=== PATIENT | male | born 1930 | race Caucasian/White ===

== ENCOUNTER 2017-08-23 17:06 | Inpatient (IN) | payer MEDICARE ==
[~2017-08-23] VITALS: Ht 172.7 cm; Wt 56.7 kg
--- NOTE | ~2017-08-23 | HP ---
PATIENT: JOSSIE PAINTING MEDICAL RECORD: [id number] ACCOUNT: [id number] LOCATION:[id number] : [birth year] ADMISSION DATE: 08/24/17 HISTORY AND PHYSICAL EXAMINATION DATE OF ADMISSION: 08/23/2017. CHIEF COMPLAINT: Shortness of breath. HISTORY OF PRESENT ILLNESS: The patient is an 87-year-old white male, who resides in [place]. Over the past couple of days, he has increasing shortness of breath, began running fever, presented to the Emergency Room where he was found to have a right lower lobe pneumonia, it was felt the patient needed admission. The patient states he does not wish to be transferred to [facility], wished to have his care locally. PAST MEDICAL HISTORY: Significant that he has had a history of angina. He has had hypertension. He has had chronic low back pain, COPD, depression. FAMILY HISTORY: Mother and father both in their 70s. SOCIAL HISTORY: The patient was born in [facility], grew up in [place]. He has worked in [employer] business in the past. He is and a father of 2. HABITS: He is a half pack per day smoker, he has been so since age 13 years of age. Alcohol use none. ALLERGIES: DEMEROL as well as CODEINE. MEDICATIONS: Include Atrovent inhaler, albuterol inhaler, sertraline 100 mg one-half tab p.o. every day, meclizine 12.5 mg q.8 hours p.r.n. dizziness, bisoprolol 5 mg once a day, hydrocodone 7.5/325 one p.o. q.4 hours p.r.n. pain. REVIEW OF SYSTEMS: CONSTITUTIONAL: He denies any headaches, seizure, or syncope. He denies change in visual or auditory acuity. PULMONARY: He does report having cough, congestion, yellow sputum production. CARDIOVASCULAR: He has had no chest pain, palpitation, PND, orthopnea. GASTROINTESTINAL: No chronic nausea, vomiting, melena, or hematochezia. GENITOURINARY: No urgency, frequency, or dysuria. PHYSICAL EXAMINATION: VITAL SIGNS: Today, his temperature was 103.8 in the Emergency Room, his pulse is 79, respirations 24, blood pressure 135/69, and his O2 sat was 97% on room air. HEENT: Head is normocephalic. No lesions. Ears: TMs clear. Eyes: Pupils equal, round, and reactive to light. His extraocular movements are intact. His nasal cavity, oral cavity, oropharynx clear. NECK: Supple. There is no adenopathy. HEART: He has a regular rate and rhythm without any murmurs, gallops, or rubs. LUNGS: He has decreased breath sounds in the right lower lung. ABDOMEN: Soft, bowel sounds positive. LOWER EXTREMITIES: He had no edema. LABORATORY DATA AND DIAGNOSTIC STUDIES: The patient had a chest x-ray showing a HISTORY AND PHYSICAL [id number] [id number] right lower lobe atelectasis or pneumonia, emphysematous mild to moderate changes seen bilaterally. His white count is 19.2, hemoglobin 11.9, hematocrit 36.7, and platelets were 218. Sodium 136, potassium 4.1, chloride 100, CO2 was 24.4. His BUN is 22, creatinine 1.4, and glucose 121. Urinalysis; the patient had 10-25 rbc's per high power field and he had few bacteria. ASSESSMENT: Right lower lobe pneumonia, chronic obstructive pulmonary disease, depression, hypertension, and arteriosclerotic heart disease. PLAN: The patient is admitted. Sputum cultures will be obtained. He will also be placed on vancomycin, also given meropenem, Tylenol for fever, albuterol and Atrovent updrafts, O2 supplementation. Sputum cultures, blood cultures will be obtained. Pharmacy will be consulted for vancomycin peak and trough. Continue to evaluate. TRANSINT:[id number] Voice Confirmation ID: [id number] DOCUMENT ID: [id number] JOSSIE BHATT MD at 0717 CC: [id number] DICTATION DATE: 08/24/17 0859 GAS LOAD DISPATCHER: 08/24/17 1103 ADM IN [facility] [address] [place] [address]
[2017-08-23 18:43] LABS: BASOPHILS 0.1 % (0-2); EOSINOPHILS 0 % (0-7); HEMATOCRIT 36.7 % (42.0-54.0); HEMOGLOBIN 11.9 g/dL (13.5-17.5); IMMATURE GRANULOCYTES 0.4 % (0-5); LYMPHOCYTES 2.8 % (15-50); MCH 29.5 pg (26.0-34.0); MCHC 32.4 g/dL (31.0-37.0); MCV 91.1 fL (80.0-100.0); MEAN PLATELET VOLUME 9.8 fL (7.4-10.4); MONOCYTES 6.8 % (2-11); NEUTROPHILS 89.9 % (40-80); PLATELET COUNT 218 10x3/uL (130-400); RBC 4.03 10x6/uL (4.20-6.10); RDW 13.3 % (11.5-14.5); WBC 19.2 10x3/uL (4.8-10.8)
[2017-08-23 18:49] LABS: APPEARANCE CLEAR (CLEAR); BACTERIA FEW /hpf (NONE SEEN); BILIRUBIN NEGATIVE (NEGATIVE); COLOR YELLOW (YELLOW); EPITHELIAL CELLS 0-5 /hpf (0-5); GLUCOSE NEGATIVE (NEGATIVE); KETONE SMALL mg/dL (NEGATIVE); MUCUS <1+ /lpf (NONE SEEN); NITRITE NEGATIVE (NEGATIVE); PROTEIN NEGATIVE (NEGATIVE); SPECIFIC GRAVITY 1.015 (1.005-1.020); UROBILINOGEN NORMAL (NORMAL); WHITE CELLS - URINE 0-5 /hpf (0-5)
[2017-08-23 18:53] LABS: INR 1.17 (0.85-1.17); PROTIME 14.5 SECONDS (11.6-15.0)
[2017-08-23 18:58] LABS: ALBUMIN 3.3 g/dL (3.4-5.0); ALKALINE PHOSPHATASE 63 U/L (46-116); ALT (SGPT) 12 U/L (10-68); BILIRUBIN - TOTAL 0.54 mg/dL (0.2-1.3); CALC OSMOLALITY 275 mosm/kg (275-300); CALCIUM 9.2 mg/dL (8.5-10.1); CARBON DIOXIDE 24.4 mmol/L (21.0-32.0); CHLORIDE - SERUM 100 mmol/L (98-107); CREATININE - SERUM 1.4 mg/dL (0.6-1.3); GLUCOSE 121 mg/dL (74-106); POTASSIUM - SERUM 4.1 mmol/L (3.5-5.1); PROTEIN - SERUM 7.5 g/dL (6.4-8.2); SODIUM 136 mmol/L (136-145); UREA NITROGEN 22 mg/dL (7-18); eGFR NON AFRICAN AMERICAN 51 mL/min (90-120)
[2017-08-23 19:05] LABS: CREATINE KINASE 85 UL (21-232); MAGNESIUM - SERUM 2.3 mg/dL (1.8-2.4); PRO BNP 3184 pg/mL (0-450)
[2017-08-23 19:09] LABS: TROPONIN-I < 0.017 ng/mL (0.000-0.060)
[2017-08-23 22:35] VITALS: BP 132/54; BMI 19.0
[2017-08-23] MEDS ORDERED: ZOLOFT50 MG PO (22:52)
[2017-08-23] MEDS ORDERED: ZEBETA5 MG PO (22:52)
[2017-08-23] MEDS ORDERED: MECLIZINE HCL12.5 MG PO (22:53)
[2017-08-23] MEDS ORDERED: NORCO 7.5/325 T1 TA1 PO (22:53)
[2017-08-24 04:42] LABS: BASOPHILS 0.1 % (0-2); EOSINOPHILS 0 % (0-7); HEMATOCRIT 36.4 % (42.0-54.0); HEMOGLOBIN 11.7 g/dL (13.5-17.5); IMMATURE GRANULOCYTES 0.2 % (0-5); MCH 29.3 pg (26.0-34.0); MCHC 32.1 g/dL (31.0-37.0); MEAN PLATELET VOLUME 10.2 fL (7.4-10.4); MONOCYTES 6.6 % (2-11); NEUTROPHILS 89.1 % (40-80); PLATELET COUNT 210 10x3/uL (130-400); RDW 13.3 % (11.5-14.5); WBC 16.9 10x3/uL (4.8-10.8)
[2017-08-24 05:02] VITALS: BP 111/47
[2017-08-24 05:02] LABS: ALBUMIN 3.1 g/dL (3.4-5.0); ANION GAP 15.6 mmol/L (8-16); BILIRUBIN - TOTAL 0.8 mg/dL (0.2-1.3); CALCIUM 8.6 mg/dL (8.5-10.1); CARBON DIOXIDE 24.4 mmol/L (21.0-32.0); CREATININE - SERUM 1.3 mg/dL (0.6-1.3)
[2017-08-24 09:30] VITALS: BP 118/54
[2017-08-24 12:07] VITALS: BP 120/41
[2017-08-24 16:12] VITALS: BP 138/56
[2017-08-24 20:34] VITALS: BP 138/63
[2017-08-24 23:53] VITALS: BP 132/66
[2017-08-25 03:54] LABS: BASOPHILS 0.1 % (0-2); EOSINOPHILS 0.2 % (0-7); HEMATOCRIT 36.7 % (42.0-54.0); HEMOGLOBIN 11.6 g/dL (13.5-17.5); IMMATURE GRANULOCYTES 0.2 % (0-5); LYMPHOCYTES 6.7 % (15-50); MCHC 31.6 g/dL (31.0-37.0); MCV 91.8 fL (80.0-100.0); MEAN PLATELET VOLUME 10.5 fL (7.4-10.4); MONOCYTES 8.3 % (2-11); NEUTROPHILS 84.5 % (40-80); PLATELET COUNT 209 10x3/uL (130-400); RDW 13.3 % (11.5-14.5)
[2017-08-25 04:08] LABS: ANION GAP 11.9 mmol/L (8-16); CALCIUM 8.9 mg/dL (8.5-10.1); CARBON DIOXIDE 27.2 mmol/L (21.0-32.0); CREATININE - SERUM 1.2 mg/dL (0.6-1.3); POTASSIUM - SERUM 4.1 mmol/L (3.5-5.1)
[2017-08-25 04:09] LABS: WBC 12.6 10x3/uL (4.8-10.8)
[2017-08-25 04:29] VITALS: BP 130/47
[2017-08-25 12:34] VITALS: BP 135/69
[2017-08-25 14:30] VITALS: Ht 172.7 cm; Wt 56.7 kg
[2017-08-25 17:18] VITALS: BP 152/84
[2017-08-25 21:17] VITALS: BP 141/63
[2017-08-26 00:44] VITALS: BP 136/64
[2017-08-26] MEDS ORDERED: LEVAQUIN500 MG PO (07:16)
[2017-08-26 08:45] VITALS: BP 148/86
[2017-08-26 12:18] VITALS: BP 165/87
== END 2017-08-26 14:20 | disposition home or self-care (01) | DRG 194 ==
LOC: D.ER 17:06 → D.MS 21:04 → OBSVTIME 21:04 → D.MS 08-24 15:47
PROVIDERS: Family Medicine; Nurse Practitioner Family
DX: J11.00 Influenza due to unidentified influenza virus with unspecified type of pneumonia (principal); J44.0 Chronic obstructive pulmonary disease with (acute) lower respiratory infection; J44.9 Chronic obstructive pulmonary disease, unspecified; I10 Essential (primary) hypertension; I25.10 Atherosclerotic heart disease of native coronary artery without angina pectoris; F32.9 Major depressive disorder, single episode, unspecified

== ENCOUNTER 2017-08-26 18:24 | Inpatient (IN) | payer MEDICARE ==
[~2017-08-26] VITALS: Ht 172.7 cm; Wt 56.7 kg
--- NOTE | ~2017-08-26 | DS ---
PATIENT:JOSSIE PAINTING :[birth year] MEDICAL RECORD: [id number] DISCHARGE SUMMARY ADMISSION DATE: 08/26/17 DISCHARGE DATE: 08/29/17 DATE OF ADMISSION: 08/26/2017 DATE OF DISCHARGE: 08/29/2017 ADMISSION DIAGNOSES: Influenza, pneumonia, generalized weakness. DISCHARGE DIAGNOSES: Influenza, pneumonia, generalized weakness. BRIEF HISTORY: The patient was readmitted after discharge the previous day, found to have influenza on top of his pneumonia. He was started on Tamiflu. His Levaquin was restarted. Cautious IV fluids. Uneventful hospital course. The patient is feeling much better. He is anxious to leave. He is dressed and ready to go. The patient declines home health. He is discharged home in significantly improved condition. HOSPITAL COURSE: See chart for details. Eventful hospital course. PHYSICAL EXAMINATION: VITAL SIGNS ON DISCHARGE: Temperature 98.2, blood pressure is 146/80, heart rate 83, respirations 20. O2 sats 94% on room air. HEART: Regular rate and rhythm. LUNGS: Clear. The patient is ambulatory independently. He is dressed and ready to go. LABORATORY DATA: CBC on discharge; white count 7.7, hemoglobin 10.3, hematocrit 31.8, platelets 222. FOLLOWUP: The patient will follow up with his primary care at the [facility]. DISCHARGE MEDICATIONS: Per med rec. Again, declined home health. TRANSINT:[id number] Voice Confirmation ID: [id number] DOCUMENT ID: [id number] JINNY LINDER DO at 0805 CC: [id number] DICTATION DATE: 08/29/17 0749 METAL GRINDER: 08/29/17 2328 DIS IN 08/29/17 [facility] [address] [place] [address]
--- NOTE | ~2017-08-26 | HP ---
PATIENT: JOSSIE PAINTING MEDICAL RECORD: [id number] ACCOUNT: [id number] LOCATION:[id number] : [birth year] ADMISSION DATE: 08/26/17 HISTORY AND PHYSICAL EXAMINATION HISTORY OF PRESENT ILLNESS: Mr. Jossie Painting is an 87-year-old male, recently discharged from the hospital with pneumonia, presented back with confusion, fever and chills, testing for influenza was positive. The patient is a and [facility]. PAST MEDICAL HISTORY: Significant for COPD, nicotine dependence, chronic back pain, depression. SOCIAL HISTORY: Lives in [place], , father of 2, half pack a day smoker since the age of 13. Denies alcohol. ALLERGIES: DEMEROL AND CODEINE. CURRENT MEDICATIONS: Listed as Atrovent, albuterol, sertraline, meclizine, bisoprolol, hydrocodone. REVIEW OF SYSTEMS: GENERAL: Significant as above. No acute change in weight. Decreased in appetite with acute symptoms. HEENT: No cephalgia, visual changes, tinnitus, epistaxis, or dysphagia. CARDIOVASCULAR: Denies chest pain, denies palpitations. PULMONARY: Admits cough, shortness of breath. GASTROINTESTINAL: Denies hematemesis, hematochezia, or melena. GENITOURINARY: Denies dysuria. MUSCULOSKELETAL: No acute changes. ENDOCRINE: Denies polyuria, polydipsia, or polyphagia. PHYSICAL EXAMINATION: VITAL SIGNS: Temperature 99.1, blood pressure is 136/70, heart rate 93, respirations 18, O2 sats 93% on room air. GENERAL: Alert, oriented to person. No acute distress. HEENT: Head is normocephalic, atraumatic. Eyes: Pupils equal, round, reactive. Ears: Canals patent. TMs are intact. Nose: Nares patent without drainage. Throat: No erythema, no exudates. NECK: Supple. No lymphadenopathy. HEART: Regular rate and rhythm. LUNGS: Prolonged expiratory phase. Breathing is nonlabored. ABDOMEN: Soft, nontender. Bowel sounds all 4 quadrants. EXTREMITIES: Present times 4, no edema. NEUROLOGIC: Intact. LABORATORY DATA: CBC: White count 9.8, hemoglobin 11.3, hematocrit 34.9, platelets 227. Chemistry shows a sodium 138, potassium 3.9, chloride 101, bicarbonate 26.2, BUN 21, creatinine 1.1. AST 37, ALT 25. Influenza A is positive. Chest x-ray stable appearance of airspace opacities up in the right middle and lower lobes, questionable trace right pleural effusion versus scarring. No significant change compared to prior. ASSESSMENT AND PLAN: 1. Possible residual pneumonia. The patient is covered with empiric HISTORY AND PHYSICAL [id number] JOSSIE PAINTING antibiotics started in the Emergency Room. We will continue. 2. Influenza. Tamiflu 75 mg b.i.d. 3. Advanced age decline. Consult case management for possible placement options. TRANSINT:[id number] Voice Confirmation ID: [id number] DOCUMENT ID: [id number] JINNY LINDER DO at 0754 CC: [id number] DICTATION DATE: 08/27/17809 ORTHODONTIC ASSISTANT: 08/27/17 0938 ADM IN [facility] [address] [place] [id number]
[~2017-08-26 18:24] MED LIST: LEVAQUIN500 MG PO; MECLIZINE HCL12.5 MG PO; NORCO 7.5/325 T1 TA1 PO; ZEBETA5 MG PO; ZOLOFT50 MG PO
[2017-08-26 20:01] LABS: ANION GAP 12.7 mmol/L (8-16); BASOPHILS 0.1 % (0-2); BILIRUBIN - TOTAL 0.8 mg/dL (0.2-1.3); CALCIUM 9.3 mg/dL (8.5-10.1); CARBON DIOXIDE 26.2 mmol/L (21.0-32.0); CREATININE - SERUM 1.2 mg/dL (0.6-1.3); EOSINOPHILS 0 % (0-7); HEMATOCRIT 35.4 % (42.0-54.0); HEMOGLOBIN 11.5 g/dL (13.5-17.5); IMMATURE GRANULOCYTES 0.2 % (0-5); LYMPHOCYTES 8.3 % (15-50); MCH 29.3 pg (26.0-34.0); MCHC 32.5 g/dL (31.0-37.0); MCV 90.1 fL (80.0-100.0); MEAN PLATELET VOLUME 10.2 fL (7.4-10.4); MONOCYTES 9.6 % (2-11); NEUTROPHILS 81.8 % (40-80); PLATELET COUNT 237 10x3/uL (130-400); POTASSIUM - SERUM 3.9 mmol/L (3.5-5.1); PROTEIN - SERUM 7.2 g/dL (6.4-8.2); RBC 3.93 10x6/uL (4.20-6.10); WBC 10.7 10x3/uL (4.8-10.8)
[2017-08-26 23:23] VITALS: BP 132/73; BMI 19.0
[2017-08-27 04:00] VITALS: BP 136/70
[2017-08-27 05:15] LABS: BASOPHILS 0.1 % (0-2); EOSINOPHILS 0.1 % (0-7); HEMATOCRIT 34.9 % (42.0-54.0); HEMOGLOBIN 11.3 g/dL (13.5-17.5); IMMATURE GRANULOCYTES 0.1 % (0-5); LYMPHOCYTES 9.6 % (15-50); MCHC 32.4 g/dL (31.0-37.0); MCV 89.7 fL (80.0-100.0); MEAN PLATELET VOLUME 10.2 fL (7.4-10.4); MONOCYTES 9.7 % (2-11); NEUTROPHILS 80.4 % (40-80); PLATELET COUNT 227 10x3/uL (130-400); RBC 3.89 10x6/uL (4.20-6.10); WBC 9.8 10x3/uL (4.8-10.8)
[2017-08-27 05:16] LABS: ALBUMIN 2.7 g/dL (3.4-5.0); ANION GAP 14.7 mmol/L (8-16); BILIRUBIN - TOTAL 0.79 mg/dL (0.2-1.3); CARBON DIOXIDE 26.2 mmol/L (21.0-32.0); CREATININE - SERUM 1.1 mg/dL (0.6-1.3); POTASSIUM - SERUM 3.9 mmol/L (3.5-5.1); PROTEIN - SERUM 6.8 g/dL (6.4-8.2)
[2017-08-27 08:04] VITALS: BP 135/70
[2017-08-27 12:17] VITALS: BP 147/85
[2017-08-27 12:39] VITALS: Ht 172.7 cm; Wt 56.7 kg
[2017-08-27 15:45] VITALS: BP 150/74
[2017-08-27 20:00] VITALS: BP 138/63
[2017-08-28] VITALS: BP 161/63
[2017-08-28 04:00] VITALS: BP 161/62
[2017-08-28 04:36] LABS: BASOPHILS 0.1 % (0-2); EOSINOPHILS 1.1 % (0-7); HEMATOCRIT 34.7 % (42.0-54.0); HEMOGLOBIN 11.3 g/dL (13.5-17.5); IMMATURE GRANULOCYTES 0.3 % (0-5); LYMPHOCYTES 10.8 % (15-50); MCH 29.3 pg (26.0-34.0); MCHC 32.6 g/dL (31.0-37.0); MCV 89.9 fL (80.0-100.0); MEAN PLATELET VOLUME 10.1 fL (7.4-10.4); MONOCYTES 13.8 % (2-11); NEUTROPHILS 73.9 % (40-80); PLATELET COUNT 223 10x3/uL (130-400); RBC 3.86 10x6/uL (4.20-6.10)
[2017-08-28 04:37] LABS: WBC 7.2 10x3/uL (4.8-10.8)
[2017-08-28 04:46] LABS: CALC OSMOLALITY 279 mosm/kg (275-300); CALCIUM 8.7 mg/dL (8.5-10.1); CARBON DIOXIDE 26.7 mmol/L (21.0-32.0); CHLORIDE - SERUM 104 mmol/L (98-107); GLUCOSE 101 mg/dL (74-106); POTASSIUM - SERUM 3.6 mmol/L (3.5-5.1); SODIUM 140 mmol/L (136-145); UREA NITROGEN 16 mg/dL (7-18); eGFR NON AFRICAN AMERICAN 75 mL/min (90-120)
[2017-08-28 07:48] VITALS: BP 145/90
[2017-08-28 12:19] VITALS: BP 142/81
[2017-08-28 15:42] VITALS: BP 161/88
[2017-08-28 20:00] VITALS: BP 125/77
[2017-08-29 03:52] LABS: BASOPHILS 0.1 % (0-2); EOSINOPHILS 1.9 % (0-7); HEMATOCRIT 31.8 % (42.0-54.0); HEMOGLOBIN 10.3 g/dL (13.5-17.5); IMMATURE GRANULOCYTES 0.4 % (0-5); LYMPHOCYTES 10.3 % (15-50); MCH 28.8 pg (26.0-34.0); MCHC 32.4 g/dL (31.0-37.0); MCV 88.8 fL (80.0-100.0); MEAN PLATELET VOLUME 9.8 fL (7.4-10.4); MONOCYTES 10.7 % (2-11); NEUTROPHILS 76.6 % (40-80); PLATELET COUNT 222 10x3/uL (130-400); RBC 3.58 10x6/uL (4.20-6.10); RDW 12.9 % (11.5-14.5); WBC 7.7 10x3/uL (4.8-10.8)
[2017-08-29 04:00] VITALS: BP 146/80
[2017-08-29 04:18] LABS: CALC OSMOLALITY 285 mosm/kg (275-300); CALCIUM 8.2 mg/dL (8.5-10.1); CARBON DIOXIDE 25.9 mmol/L (21.0-32.0); CHLORIDE - SERUM 107 mmol/L (98-107); GLUCOSE 109 mg/dL (74-106); POTASSIUM - SERUM 3.3 mmol/L (3.5-5.1); SODIUM 142 mmol/L (136-145); UREA NITROGEN 17 mg/dL (7-18); eGFR NON AFRICAN AMERICAN 75 mL/min (90-120)
[2017-08-29] MEDS ORDERED: TAMIFLU75 MG PO (07:44)
[2017-08-29 07:54] VITALS: BP 160/80
== END 2017-08-29 10:30 | disposition home or self-care (01) | DRG 195 ==
LOC: D.ER 18:24 → D.MS 21:10
PROVIDERS: Family Medicine
DX: J11.00 Influenza due to unidentified influenza virus with unspecified type of pneumonia (principal); J44.9 Chronic obstructive pulmonary disease, unspecified; F17.200 Nicotine dependence, unspecified, uncomplicated